=== PATIENT | female | born 1940 | race Caucasian/White ===

== ENCOUNTER 2021-01-31 11:48 | Outpatient (CLI) | payer MEDICARE, SELFPAY ==
--- NOTE | ~2021-01-31 | XR_ITS ---
XR cervical spine min 6V DATE: 01/31/2021 12:21 INDICATION: Right neck pain. No injury. Fusion 20 years ago. TECHNIQUE: AP, open-mouth, odontoid, lateral, swimmer's, bilateral oblique views. Flexion and extensi on standing views. COMPARISON: None FINDINGS: Status post anterior cervical spine surgical fusion at C5-C7. Mild degenerative disease at C3-4 and C4-5. No fracture or dislocation, locked facet or cervical instability is detected. C1 and C2 are normally aligned and the odontoid process is intact. There is prominent degenerative change at the articulatio n of the anterior arch of C1 and the odontoid process of C2. Apophyseal joint spurring is noted, encroaching prominently on the posterior aspect of left the C4 an d C5 neural foramina in particular. IMPRESSION: Status post anterior cervical spine fusion at C5-7 Mild degenerative disc disease at C3-4 and C4-5 Prominent degenerative change at the apophyseal joints, encroaching posteriorly upon the left C4-C5 n eural foramina in particular No fracture or dislocation Reviewed, dictated and finalized at location A. IMPRESSION: Status post anterior cervical spine fusion at C5-7 Mild degenerative disc disease at C3-4 and C4-5 Prominent degenerative change at the apophyseal joints, encroaching posteriorly upon the left C4-C5 neural foramina in particular No fracture or dislocation
== END 2021-01-31 11:49 | disposition home or self-care (01) ==
LOC: ANHIMG 11:55
PROVIDERS: PCP Family Medicine; Visit Provider Family Medicine
DX: M54.2 Cervicalgia (principal); Z98.1 Arthrodesis status
CPT/HCPCS: 72052

== ENCOUNTER 2021-08-21 10:36 | Outpatient (CLI) | payer MEDICARE, SELFPAY ==
--- NOTE | ~2021-08-21 | MR_ITS ---
EXAMINATION: MR cervical spine wo con EXAM DATE: 08/21/2021 12:07 INDICATION: M50.30 - Other cervical disc degeneration, unspecified ce... . TECHNIQUE: Multi-sequential, multiplanar MR images of the cervical spine were obtained without contra st. Axial T2, axial T2 MERGE sequence. Sagittal T1, T2, T2 fat saturation images also obtained. Th ere is no prior study for comparison. FINDINGS: Cervical fusion C5-7. There is mild to moderate disc disease at C4-5, mild disc disease at the other cervical levels. The spinal cord signal intensity and intrinsic morphology is normal. Cerv icomedullary junction is normal in appearance. There are no suspicious marrow signal abnormalities. P araspinal soft tissue is unremarkable. The vertebral bodies are aligned in the AP dimension. Level by level evaluation: C2-C3: Disc does not extend beyond the endplate margin. Uncovertebral joint arthropathy: None. Facet joint arthropathy: Moderate to severe bilateral. Neural foraminal stenosis: Mild bilateral. Central canal stenosis: No stenosis. C3-C4: Disc does not extend beyond the endplate margin. Uncovertebral joint arthropathy: Mild bilateral. Facet joint arthropathy: Severe left, moderate right. Neural foraminal stenosis: Mild left. Central canal stenosis: No stenosis. C4-C5: There is a mild diffuse disc bulge. Uncovertebral joint arthropathy: Probably fused. Facet joint arthropathy: Severe left, moderate right. Neural foraminal stenosis: Mild left. Central canal stenosis: Mild. C5-C6: This level is fused. Uncovertebral joint arthropathy: Fused. Facet joint arthropathy: Fused. Neural foraminal stenosis: Mild left. Central canal stenosis: Mild. C6-C7: This level is fused. Uncovertebral joint arthropathy: Mild to moderate left, mild right, but probably fused. Facet joint arthropathy: Mild to moderate bilateral. Neural foraminal stenosis: No stenosis. Central canal stenosis: No stenosis. C7-T1: Disc does not extend beyond the endplate margin. Uncovertebral joint arthropathy: Mild bilateral. Facet joint arthropathy: Moderate bilateral. Neural foraminal stenosis: No stenosis. Central canal stenosis: No stenosis. IMPRESSION: 1. Advanced left-sided upper cervical facet arthropathy. 2. Spondylosis as detailed above. Reviewed, dictated and finalized at location A. PROFESSOR
[2021-08-21 11:20] LABS: Estimated Glomerular Filt Rate 36
== END 2021-08-21 10:37 | disposition home or self-care (01) ==
PROVIDERS: PCP Family Medicine; Visit Provider Family Medicine
DX: M50.30 Other cervical disc degeneration, unspecified cervical region (principal); M47.812 Spondylosis without myelopathy or radiculopathy, cervical region; M12.88 Other specific arthropathies, not elsewhere classified, other specified site
CPT/HCPCS: 72141

== ENCOUNTER 2021-11-05 14:42 | Outpatient (CLI) | payer MEDICARE, SELFPAY ==
--- NOTE | ~2021-11-05 | XR_ITS ---
EXAMINATION: XR chest 2V 11/05/2021 14:58 INDICATION: Cough. PROCEDURE: 2 view chest COMPARISON: Comparison to multiple prior studies sequentially, with oldest reviewed study dated 05/16. FINDINGS: The lungs are clear. The cardiomediastinal silhouette is within normal limits. There are no pleural effusions. There is no pneumothorax suspected. There is a calcified granuloma of the rig ht lower lobe. There is atherosclerosis of the aorta. IMPRESSION: 1: NO ACUTE CARDIOPULMONARY DISEASE. Reviewed, dictated and finalized at location A.
== END 2021-11-05 14:43 | disposition home or self-care (01) ==
LOC: ANHIMG 14:44
PROVIDERS: PCP Family Medicine; Visit Provider Nurse Practitioner Family
DX: R05.9 Cough, unspecified (principal); J40 Bronchitis, not specified as acute or chronic
CPT/HCPCS: 71046